=== PATIENT | male | born 1980 | race Two or more races ===

== ENCOUNTER 2019-11-12 07:35 | Emergency (ER) | payer OTHER ==
[~2019-11-12] VITALS: Ht 180.3 cm; Wt 106.8 kg
[2019-11-12] MEDS ORDERED: FENO145T7 (07:43)
[2019-11-12] MEDS ORDERED: VERA40TA (07:43)
[2019-11-12] MEDS ORDERED: [UNRECOGNIZED DRUG - CODE] (07:43)
[2019-11-12] MEDS ORDERED: MELO15TA28 (07:43)
[2019-11-12] MEDS ORDERED: PERCOCET 5MG/325MG TAB PO ONE (08:15)
--- NOTE | 2019-11-12 08:22 | REPVR ---
PROCEDURE INFORMATION: Exam: XR Left Shoulder Exam date and time: 11/12/2019 8:06 AM Age: 39 years old Clinical indication: Pain; Shoulder; Left; Additional info: Fall TECHNIQUE: Imaging protocol: XR Left shoulder. Views: 2 or more views. COMPARISON: MRI SHOULDER WITHOUT FOL BY WI LEFT 08/18/2018 7:10 AM FINDINGS: Bones/joints: Acute severely displaced fracture of the mid left clavicle with significant override of the distal fracture fragment. Segmental fracture fragment is severely rotated. Proximal humerus is intact. Acromioclavicular joint is not widened. Left shoulder joint is intact. Soft tissues: Normal. IMPRESSION: 1. Acute severely displaced fracture of the mid left clavicle. 2. Left shoulder joint is intact. Electronically signed by: Aldo Farooq On 11/12/2019 08:21:39 AM
[2019-11-12] MEDS ORDERED: IBUP-1114 PO (08:32)
[2019-11-12] MEDS ORDERED: PERC5TAB12 PO (08:33)
[2019-11-12 09:00] VITALS: BP 141/89
== END 2019-11-12 09:07 | disposition home or self-care (01) ==
LOC: M ED 07:35
DX: S42.022A Displaced fracture of shaft of left clavicle, initial encounter for closed fracture (principal); W19.XXXA Unspecified fall, initial encounter; Y92.9 Unspecified place or not applicable; Y93.9 Activity, unspecified; Y99.9 Unspecified external cause status; E78.9 Disorder of lipoprotein metabolism, unspecified; Z79.899 Other long term (current) drug therapy; Z88.5 Allergy status to narcotic agent